=== PATIENT | male | born 1980 | race Caucasian/White ===

== ENCOUNTER → 2023-11-15 08:31 | Outpatient (BNVA) | payer OTHER, SELFPAY | PROVIDERS: Family Provider Nurse Practitioner; Visit Provider Family Medicine Adult Medicine | DX: M19.012 Primary osteoarthritis, left shoulder (principal); M25.512 Pain in left shoulder | CPT/HCPCS: 73030 ==

== ENCOUNTER → 2025-07-08 13:35 | Outpatient (BNVA) | payer OTHER, SELFPAY | PROVIDERS: Family Provider Nurse Practitioner; Visit Provider Family Medicine | DX: Z13.6 Encounter for screening for cardiovascular disorders (principal) | CPT/HCPCS: 80053; 80061; 82306; 84439; 84443; 85025 ==

== ENCOUNTER 2025-07-29 06:06 | Day surgery (SDC) | payer OTHER, SELFPAY ==
[2025-07-29 06:22] VITALS: BP 121/87; PULSE 82; RESP 17; TEMP 36.3; O2SAT 98; BMI 28.5
--- NOTE | 2025-07-29 06:22 | W.PM.OPSUD ---
Surgery/Procedure H&P Update DATE OF PROCEDURE: July 29, 2025 DATE H&P PERFORMED: 07/20/25 H&P UPDATE INFORMATION: I have reviewed H&P completed within last 30 days, I have examined patient prior to procedure, No changes to prior documentation, H&P is in [facility] EMR on date indicated and Risks and benefits of the procedure reviewed PLANNED PROCEDURE: Operation Date: 07/29/25 07:00 Proposed Procedures p Colonoscopy [id number] G0105 K92.1(Not Applicable) - Bright Chen MD
--- NOTE | 2025-07-29 07:17 | ANES.PREANE2 ---
Pre-Anesthetic Assessment Height/Weight: Height 1.73 m Weight 85.275 kg Temp Pulse Resp BP Pulse Ox O2 Del Method 97.4 F L 82 17 121/87 98 Room Air 07/29/25 06:22 07/29/25 06:22 07/29/25 06:22 07/29/25 06:22 07/29/25 06:22 07/29/25 06:22 Preop Diagnosis: screen Operation Date: 07/29/25 07:00 Proposed Procedures p Colonoscopy 35579 G0105 K92.1(Not Applicable) - Bright Chen MD Familial anesthetic complications: none Was Beta Nelson taken within 24 hours: N/A Was Clonidine taken within 24 hours: N/A Last intake: Intake Last Liquid Date 07/28/25 Last Liquid Time 20:00 Last Solid Date 07/27/25 Last Solid Time 20:00 Social No alcohol and No tobacco Exam alert, oriented x 3, clear to auscultation bilaterally and regular rate & rhythm Airway Submandibular: within normal limits Cervical ROM: within normal limits Mallampati: Class II History/ROS No significant history except as noted Pulmonary None reported CV/HEM None reported None reported Musc/skel None reported Neuropsych Depression (mild) Anesthetic Plan ASA status: 2 Anesthesia: MAC Risk of > 500 ml blood loss (7ml/kg in children): No Medications/Allergies Home Medications ?Medication ?Instructions ?Recorded ?Confirmed ?Last Taken ?Type docusate sodium 100 mg capsule 100 mg PO DAILY 30 days #30 caps 07/29/25 Unknown Rx lidocaine 5 % topical ointment 1 applic topical BID 7 days #30 07/29/25 Unknown Rx grams polyethylene glycol 3350 17 gram 17 g PO DAILY 30 days #30 ea 07/29/25 Unknown Rx oral powder packet (Miralax) Allergies Allergy/AdvReac Type Severity Reaction Status Date / Time Penicillins Allergy ALGY-Rash Verified 07/29/25 06:19 Current Medications Generic Name Dose Route Start Last Admin Trade Name Freq PRN Reason Stop Dose Admin Sodium Chloride 1,000 mls @ 15 mls/hr 07/29/25 06:08 07/29/25 06:28 Sodium Chloride 0.9% IV 07/30/25 06:07 15 mls/hr .Q24H PRN Administration COLONOSCOPY FLUIDS PFSH Anesthesia Medical History Mild depression Left anterior shoulder pain Acute bronchiolitis URI with cough and congestion Family History Father Colon cancer Social History Smoking and tobacco/nicotine status: never used tobacco/nicotine Alcohol intake: current Alcohol intake frequency: few times a week
[2025-07-29 07:32] VITALS: BP 87/54; PULSE 69; RESP 16; TEMP 36.4; O2SAT 91
[2025-07-29 07:41] VITALS: BP 103/72; PULSE 67; RESP 16; O2SAT 94
--- NOTE | 2025-07-29 08:00 | ANE.PACU2 ---
Inpatient post-anesthesia follow up: Airway intact: Yes Vital signs: Temperature 97.6 F Pulse Rate 81 Respiratory Rate 16 Blood Pressure 124/80 Pulse Oximetry 97 Oxygen Delivery Me thod Room Air Oxygen Flow Rate Fraction of Inspir ed Oxygen Hydration adequate: Yes Nausea and vomiting: No Pain level: 1 Mental status: Baseline
[2025-07-29 08:07] VITALS: BP 124/80; PULSE 81; RESP 16; O2SAT 97
== END 2025-07-29 08:07 | disposition home or self-care (01) ==
PROVIDERS: Family Provider Nurse Practitioner; PCP Family Medicine; Visit Provider Surgery
PROC: 0DJD8ZZ Inspection of Lower Intestinal Tract, Via Natural or Artificial Opening Endoscopic (ICD-10-PCS; CPT 45378; principal; 2025-07-29 07:00)
DX: K92.1 Melena (principal); K64.8 Other hemorrhoids; K60.0 Acute anal fissure; F32.A Depression, unspecified; Z80.0 Family history of malignant neoplasm of digestive organs
CPT/HCPCS: 45378; J2250; J2704; J3010; J7030